=== PATIENT | male | born 1985 | race Caucasian/White ===

== ENCOUNTER 2019-11-24 08:33 | Day surgery (SDC) | payer OTHER ==
[~2019-11-24] VITALS: Ht 190.5 cm; Wt 95.3 kg
[2019-11-24] MEDS ORDERED: LIDOCAINE 2% 100 MG/5 ML UJET TP ONE (11:43)
[2019-11-24] MEDS ORDERED: fentaNYL 0.05 MG/ML VIAL ONE (11:43)
[2019-11-24] MEDS ORDERED: MIDAZOLAM 2 MG/2 ML VIAL ONE ×2 (11:43)
== END 2019-11-24 12:55 | disposition home or self-care (01) ==
LOC: MDS 08:33 → MMU 11:12 → MDS 12:55
PROVIDERS: ATTEND Internal Medicine Gastroenterology
DX: K62.5 Hemorrhage of anus and rectum (principal); K62.1 Rectal polyp; C20 Malignant neoplasm of rectum; E66.9 Obesity, unspecified; Z68.31 Body mass index [BMI] 31.0-31.9, adult; F17.210 Nicotine dependence, cigarettes, uncomplicated; Z98.890 Other specified postprocedural states
CPT/HCPCS: 45380; 88305; J2250; J3010; J7030